=== PATIENT | male | born 1990 | race Caucasian/White ===

== ENCOUNTER 2018-04-15 19:45 | Emergency (ER) | payer OTHER ==
[2018-04-15 19:48] VITALS: BP 124/77; PULSE 84; TEMP 98.3; BMI 22.6
[2018-04-15] MEDS ORDERED: IBUPROFEN 400 MG TABLET (FP) PO ONE ×2 (19:58→20:02)
--- NOTE | 2018-04-15 19:59 | PDOC ---
History of Present Illness - General Chief Complaint: Injury Stated Complaint: SWOLLEN RT HAND Time Seen by Provider: 04/15/18 19:55 History Source: Patient - History of Present Illness Occurred: reports: this evening Upper Extremity Pain Location: right: hand Past History - Past Medical History Allergies/Adverse Reactions: Allergies Allergy/AdvReac Type Severity Reaction Status Date / Time No Known Allergies Allergy Verified 04/15/18 19:48 Home Medications: Ambulatory Orders NK [No Known Home Medication] 11/05/16 COPD: No - Suicide/Smoking/Psychosocial Hx Smoking History: Never smoked Have you smoked in the past 12 months: No Hx Alcohol Use: No Drug/Substance Use Hx: No Substance Use Type: None Review of Systems - Review of Systems Musculoskeletal: Yes: Joint Pain, Joint Swelling *Physical Exam - Vital Signs Last Vital Signs Temp Pulse Resp BP Pulse Ox 98.3 F 84 18 124/77 98 04/15/18 19:46 04/15/18 19:46 04/15/18 19:46 04/15/18 19:46 04/15/18 19:46 - Physical Exam General Appearance: Yes: Appropriately Dressed. No: Apparent Distress HEENT: positive: Normal Voice Neck: positive: Supple Respiratory/Chest: negative: Respiratory Distress Extremity: positive: Other (significant swelling diffusely over dorsum of R hand without any signifcant tenderness, no tenderness to snuffbox, NVI, pulses intact) Integumentary: positive: Dry, Warm Neurologic: positive: Fully Oriented, Alert, Normal Mood/Affect ED Treatment Course - RADIOLOGY Radiology Studies Ordered: Category Date Time Status HAND- RIGHT [RAD] Stat Radiology 04/15/18 19:57 Ordered Medical Decision Making - Medical Decision Making 04/15/18 19:57 37 yo M, p/w R hand pain/swelling s/p punching wall tonight after being upset with his father see exam R/o fx -xray -pain control 04/15/18 20:18 04/15/18 20:19 Xray neg for fx. MARÍA and sling given. To take motrin rpn. Reasons to f/u with hand d/w pt *DC/Admit/Observation/Transfer Diagnosis at time of Disposition: Hand sprain Qualifiers: Encounter type: initial encounter Laterality: right Qualified Code(s): S63.91XA - Sprain of unspecified part of right wrist and hand, initial encounter - Discharge Dispostion Disposition: HOME Condition at time of disposition: Good - Referrals Referrals: Brinda Grover [Primary Care Provider] - - Patient Instructions Printed Discharge Instructions: DI for Wrist Sprain Additional Instructions: Your xray did not show an obvious fracture at this time. Keep maría in place for swelling and use sling to elevate extremity above your heart to help swelling. You can also apply ice to area. Take 800mg Motrin Q6H for pain. If symptoms persist after 2 weeks, follow-up with Dr. Eduardo of orthopedics - Post Discharge Activity
== END 2018-04-15 20:21 | disposition home or self-care (01) ==
LOC: JERFT 19:45
DX: S63.8X1A Sprain of other part of right wrist and hand, initial encounter (principal); W22.8XXA Striking against or struck by other objects, initial encounter; Y93.89 Activity, other specified; Y92.038 Other place in apartment as the place of occurrence of the external cause; Y99.8 Other external cause status
CPT/HCPCS: 73110-TC-RT-FY; 73130-TC-RT-FY; 99281-25

== ENCOUNTER 2018-08-18 08:29 | Emergency (ER) | payer OTHER ==
[2018-08-18 08:37] VITALS: BP 116/75; PULSE 68; TEMP 98.4; BMI 22.6
--- NOTE | 2018-08-18 09:10 | PDOC ---
History of Present Illness - General Chief Complaint: Foreign Body (FB) Stated Complaint: EYE PAIN Time Seen by Provider: 08/18/18 09:00 History Source: Patient Exam Limitations: No Limitations (FB sensation in R eye) Past History - Travel Traveled outside of the country in the last 30 days: No - Past Medical History Allergies/Adverse Reactions: Allergies Allergy/AdvReac Type Severity Reaction Status Date / Time No Known Allergies Allergy Verified 08/18/18 08:35 Home Medications: Ambulatory Orders Erythromycin 0.5% Eye Ointment [Erythromycin 0.5% Eye Ointment -] 1 applic AD TID 10 Days #1 tube 08/18/18 COPD: No - Suicide/Smoking/Psychosocial Hx Smoking History: Never smoked Have you smoked in the past 12 months: No Hx Alcohol Use: No Drug/Substance Use Hx: No Substance Use Type: None Review of Systems - Review of Systems Able to Perform ROS?: Yes Is the patient limited Lao proficient: No Constitutional: No: Chills, Fever HEENTM: Yes: Eye Pain. No: Blurred Vision, Tearing, Recent change in vision, Double Vision, Cataracts, Ear Pain, Nose Congestion, Throat Pain Cardiac (ROS): No: Chest Pain, Lightheadedness, Palpitations ABD/GI: No: See HPI, Abdominal Distended Neurological: No: Headache, Numbness, Paresthesia, Seizure, Tingling, Tremors, Weakness *Physical Exam - Vital Signs Last Vital Signs Temp Pulse Resp BP Pulse Ox 98.4 F 68 16 116/75 100 08/18/18 08:35 08/18/18 08:35 08/18/18 08:35 08/18/18 08:35 08/18/18 08:35 - Physical Exam General Appearance: Yes: Nourished HEENT: positive: EOMI (R eye: + mild injected conjuctiva at 6 o clock), MANA. negative: Photophobia, Nasal Congestion, Rhinorrhea Integumentary: positive: Normal Color, Dry Neurologic: positive: production quality analyst II-XII NML intact, Fully Oriented Medical Decision Making - Medical Decision Making 08/18/18 09:07 Patient is a 27 years old male with right eye discomfort after something that flew in eye while at the park yesterday. He denies any pain and but feels like a foreign body sensation in the right eye. He denies any contact lens use or direct trauma. Examination visual acuity is 20/20 uncorrected in both eyes. There is some evidence also injected conjunctiva at 6:00 in the R eye. positive fluorescent dye uptake noted at 6:00. There is no foreign body noted or corneal ulcer noted. Diagnosis is corneal abrasion erythromycin ophthalmic ointment will be sent to pharmacy. *DC/Admit/Observation/Transfer Diagnosis at time of Disposition: Corneal abrasion, right Qualifiers: Encounter type: initial encounter Qualified Code(s): S05.01XA - Injury of conjunctiva and corneal abrasion without foreign body, right eye, initial encounter - Discharge Dispostion Disposition: HOME Condition at time of disposition: Stable Decision to Admit order: No - Prescriptions Prescriptions: Erythromycin 0.5% Eye Ointment [Erythromycin 0.5% Eye Ointment -] 1 applic AD TID 10 Days #1 tube - Referrals - Patient Instructions Printed Discharge Instructions: DI for Corneal Abrasion Additional Instructions: I discussed the physical exam findings, ancillary test results and final diagnoses with the patient. I answered all of the patient's questions. The patient was satisfied with the care received and felt comfortable with the discharge plan and treatment plan. The patient will call their primary care physician within 24 hours to arrange follow-up and will return to the Emergency Department with any new, persistant or worsening symptoms. - Post Discharge Activity
== END 2018-08-18 09:28 | disposition home or self-care (01) ==
LOC: JERFT 08:29
PROC: 4A07X0Z Measurement of Visual Acuity, External Approach (ICD-10-PCS; principal; 2018-08-18)
DX: S05.01XA Injury of conjunctiva and corneal abrasion without foreign body, right eye, initial encounter (principal); W22.8XXA Striking against or struck by other objects, initial encounter; Y93.89 Activity, other specified; Y92.830 Public park as the place of occurrence of the external cause; Y99.8 Other external cause status
CPT/HCPCS: 99173; 99281-25